=== PATIENT | male | born 1995 | race Hispanic/Latino ===

== ENCOUNTER 2017-06-09 17:51 | Emergency (ER) | payer OTHER ==
[2017-06-09] MEDS ORDERED: KETOROLAC TROMETHAMINE 60 MG/2 ML VIAL ONE (18:24)
[2017-06-09] MEDS ORDERED: DIAZEPAM 5 MG TABLET ONE (18:25)
== END 2017-06-09 20:28 | disposition home or self-care (01) ==
LOC: EDH 17:51
DX: S16.1XXA Strain of muscle, fascia and tendon at neck level, initial encounter (principal); S46.812A Strain of other muscles, fascia and tendons at shoulder and upper arm level, left arm, initial encounter; V59.49XA Driver of pick-up truck or van injured in collision with other motor vehicles in traffic accident, initial encounter; Y93.89 Activity, other specified; Y92.89 Other specified places as the place of occurrence of the external cause; Y99.8 Other external cause status
CPT/HCPCS: 72125; 96372; 99284; J1885

== ENCOUNTER → 2019-11-16 | Outpatient (CLI) | payer OTHER | END | disposition home or self-care (01) | LOC: SHCH 14:31 | PROVIDERS: ATTEND Internal Medicine Cardiovascular Disease | DX: I51.7 Cardiomegaly (principal); R07.9 Chest pain, unspecified; R94.31 Abnormal electrocardiogram [ECG] [EKG]; I45.6 Pre-excitation syndrome | CPT/HCPCS: 93306; 93356 ==

== ENCOUNTER 2020-12-04 23:29 | Emergency (ER) | payer OTHER ==
[2020-12-05 01:35] VITALS: BP 144/73
== END 2020-12-05 03:57 | disposition home or self-care (01) ==
LOC: EDH 23:29
DX: S50.12XA Contusion of left forearm, initial encounter (principal); T26.92XA Corrosion of left eye and adnexa, part unspecified, initial encounter; X58.XXXA Exposure to other specified factors, initial encounter; Y93.89 Activity, other specified; Y92.89 Other specified places as the place of occurrence of the external cause; Y99.8 Other external cause status
CPT/HCPCS: 73090